=== PATIENT | female | born 1995 | race Caucasian/White ===

== ENCOUNTER 2017-01-10 22:33 | Emergency (ER) | payer MEDICAID ==
[~2017-01-10] VITALS: Ht 165.1 cm; Wt 77.0 kg
[2017-01-10 23:46] VITALS: BP 135/102
== END 2017-01-10 23:30 | disposition left against medical advice (07) ==
LOC: ER 23:26
DX: Z53.21 Procedure and treatment not carried out due to patient leaving prior to being seen by health care provider (principal)

== ENCOUNTER 2021-10-29 14:51 | Emergency (ER) | payer SELFPAY ==
[~2021-10-29] VITALS: Ht 165.1 cm; Wt 95.0 kg
[2021-10-29 15:55] LABS: BASOPHILS % 0.3 % (0.0-2.0); EOSINOPHILS % 0.6 % (0.0-5.0); HEMATOCRIT. 37.4 % (36.0-48.0); HEMOGLOBIN. 12.5 g/dL (12.0-16.0); LYMPHOCYTES % 29.8 % (20.0-50.0); MEAN CORPUSCULAR VOLUME 83.8 fL (81.0-99.0); MEAN PLATELET VOLUME 8.6 fl (7.4-10.4); MONOCYTES % 5.6 % (2.0-8.0); NEUTROPHILS % 63.7 % (40.0-76.0); PLATELET 325 x1000/uL (130-400); RED BLOOD CELL COUNT 4.47 mill/uL (4.2-5.4)
[2021-10-29 16:02] LABS: CHLORIDE 107 mEq/L (98-107)
[2021-10-29 16:34] LABS: B-HCG QUANTITATIVE 11129 mIU/mL (<3)
[2021-10-29 18:17] VITALS: BP 112/86
== END 2021-10-29 18:22 | disposition home or self-care (01) ==
LOC: ER 14:51
DX: O20.0 Threatened abortion (principal); Z3A.10 10 weeks gestation of pregnancy
CPT/HCPCS: 36415; 76801; 76817; 80053; 84702; 85025; 99284; J7042